=== PATIENT | male | born 1950 | race Caucasian/White ===

== ENCOUNTER 2018-07-04 06:44 | Outpatient (CLI) ==
[2013-06-25 14:40] VITALS: BMI 25.6
--- NOTE | 2018-07-04 10:53 | STECHOSEST ---
Date of Test: 07/04/18 Ordering Physician: DR. CYNDY VOGT Occupation: SAFETY AIDE Reason for Exam: POSITIVE STRESS TEST, CABG, HISTORY OF ME, CARDIOMEGALY, LVH Smoking History: 50 PCK YRS/ 1/2 PCK Height: 70" Weight: 199 LBS Current Medications: CRESTOR, PLAVIX, TOPROL XL, ENALAPRIL, NABUMETONE, NITRO, OMEPRAZOLE, TRAMADOL Resting EKG: SINUS RHYTHM/ NO ACUTE CHANGES Target Heart Rate: 130 S-T SEGMENT STAGE MPH/GRADE HEART RATE BPM BLOOD PRESSURE mmhg RHYTHM +/- ELEVATION DEPRESSION SYMPTOMS At Rest 66 BPM 126/88 MMHG SR X NONE 1 1.7/10% 115 BPM SR X NONE 2 2.5/12% 3 3.4/14% 4 4.2/16% 5 5.0/18% Immediately after 135 BPM 168/64 MMHG SR X FATIGUE Minutes Post Exercise 5:00 75 BPM 142/88 MMHG SR X NONE Minutes Post Exercise Total Time: 4:28 Maximum Heart Rate Reached: 135 BPM Reason for Termination: FATIGUE 96% Oxygen saturation on room air with exercises Mets 7.0 INTERPRETATION 1. BORDERLINE ISCHEMIC ST-T WAVE CHANGES WITH EXERCISE 2. NO CHEST PAIN OR DISCOMFORT 3. VENTRICULAR BIGEMINY AT THE HEIGHT OF EXERCISE 4. BLOOD PRESSURE RESPONSE: ADEQUATE NORMAL LEFT VENTRICULAR CONTRACTILITY AT REST AND WITH EXERCISE SESTAMIBI TO FOLLOW MTDD
--- NOTE | 2018-07-04 12:22 | NM ---
Cardiac Stress Test HISTORY: Previous modified infarction. Bypass surgery. Ischemia. COMPARISON: None of this type. TECHNIQUE: Resting: The patient was injected with 11.5 mCi of 99m technetium Sestamibi (Cardiolite) intravenous ly after which a "resting" SPECT study of the heart was performed. Stress: The patient was stressed using a Nicola protocol and at the appropriate time injected with 31 .2 mCi of 99m technetium Sestamibi (Cardiolite) after which a "stress" SPECT study of the heart was p erformed. Gated images of the heart were also obtained to assess wall motion and calculate ejection fraction. For details of the stress protocol employed, reference is made to the separate report of t he performing physician. FINDINGS: The stress perfusion images demonstrate modestly reduced activity in the inferior wall whi ch appears to improve partially at rest suggesting minimal ischemia. The resting perfusion images de monstrate no evidence of significant redistribution/ischemia elsewhere. The left ventricular ejection fraction (LVEF) is 62 %. IMPRESSION: 1. Left ventricular myocardial perfusion demonstrates a small perfusion defect in the inferior wall which shows subtle improvement at rest suggesting minimal ischemia.. 2. The left ventricular ejection fraction (LVEF) is 62 %.
--- NOTE | 2018-07-04 13:27 | ECHOSTRESS ---
Date of Exam: 07/04/18 Ordering Physician: DR. CYNDY VOGT Reason for Echo: POSITIVE STRESS TEST, CARDIOMEGALY, LVH M-Mode Normal Adult Results LV Dimensions Normal Adult Results AoV Opening excursions >1.6 LVEDD-base- 3.5-5.8 Ao root dimensions 2.0-3.7 LVESD-base- 3.1-4.6 L. Atrium dimensions 1.9-3.8 Post. Wall thickness 0.8-1.1 IV septum (thickness) 0.7-1.2 Post. Wall excursion 0.72-1.3 Septal motion Systolic motion R. Ventricular cavity 1.5-2.0 LVEF 60% Paradoxical septal wall motion 2-D: NORMAL LEFT VENTRICULAR CONTRACTILITY--RESTING AND POST EXERCISE M-MODE: MV: AV: TV: PV: CHAMBER SIZE: WALL MOTION:NORMAL LEFT VENTRICULAR CONTRACTILITY--RESTING AND POST EXERCISE PERICARDIUM: INTERPRETATION: 1. NORMAL LEFT VENTRICULAR CONTRACTILITY--RESTING AND POST EXERCISE MTDD
== END 2018-07-04 06:45 | disposition home or self-care (01) ==
LOC: CAR 06:44
PROVIDERS: ATTEND Internal Medicine
DX: R94.39 Abnormal result of other cardiovascular function study (principal); I51.7 Cardiomegaly; I25.9 Chronic ischemic heart disease, unspecified; I25.2 Old myocardial infarction; Z95.1 Presence of aortocoronary bypass graft